=== PATIENT | male | born 1995 | race Caucasian/White ===

== ENCOUNTER 2018-07-06 11:04 | Emergency (ER) | payer OTHER ==
[2018-07-06 13:20] VITALS: BP 119/86
--- NOTE | 2018-07-06 13:22 | UC ---
Eye Complaint HPI - HPI Summary HPI Summary: Left eye redness and crustiness this morning. Wears contact lenses all day but not through the night. Denies eye pain or feeling like a foreign body is in the eye. - History of Current Complaint Chief Complaint: UCEye Stated Complaint: BILATERAL EYE CONCERN Time Seen by Provider: 07/06/18 13:22 Hx Obtained From: Patient Onset/Duration: Gradual Onset Severity Initially: Mild Severity Currently: Mild Pain Intensity: 0 Location of Injury: Other - No injury Aggravating Factor(s): Contact Lens Alleviating Factor(s): Nothing Associated Signs And Symptoms: Positive: Drainage (Purulent). Negative: Vision Impairment Right, Vision Impairment Left, Fever - Risk Factors Penetrating Injury Risk Factor: Negative Globe Rupture Risk Factors: Negative Acute Glaucoma Risk Factors: Negative Optic Artery Occlusion Risk Factors: Negative - Allergies/Home Medications Allergies/Adverse Reactions: Allergies Allergy/AdvReac Type Severity Reaction Status Date / Time No Known Allergies Allergy Verified 07/06/18 13:16 PMH/Surg Hx/FS Hx/Imm Hx Previously Healthy: Yes - Surgical History Surgical History: None - Family History Known Family History: Positive: None - Social History Occupation: Student Lives: Dormitory/Roommates Alcohol Use: Occasionally Substance Use Type: None Smoking Status (MU): Never Smoked Tobacco Review of Systems All Other Systems Reviewed And Are Negative: Yes Eyes: Positive: Drainage - Left eye redness, no pain, no feeling of foreign body in eye, Eye Redness Is Patient Immunocompromised?: No Physical Exam Appearance: Well-Appearing, No Pain Distress, Well-Nourished Vital Signs: Initial Vital Signs Temp 98.0 F 07/06/18 13:14 Pulse 53 07/06/18 13:14 Resp 15 07/06/18 13:14 BP 119/86 07/06/18 13:14 Pulse Ox 98 07/06/18 13:14 Vital Signs Reviewed: Yes Eyes: Positive: Other: - No drainage presently, conjunctiva and sclera injected , no pain, globe is intact. ENT: Positive: Hearing grossly normal, Pharynx normal, TMs normal Neck exam: Normal Neck: Positive: Supple, Nontender, No Lymphadenopathy Musculoskeletal: Positive: Strength Intact, ROM Intact Neurological: Positive: Alert, Muscle Tone Normal - CN II-XII intact. Skin: Positive: Other - Left eyelid may be a bit swollen to give the appearance of the eylid mildly drooping, but all of his Cranial Nerves (II-XII) are normal and symmetric. The eyelid is normal color Eye Complaint Course/Dx - Course Course Of Treatment: Pt comfortable here. Will treat as a conjunctivitis with a follow up at an ophthamologist in 2-3 days if no improvement and definite follow up if the eyelid drooping does not resolve. Pt is agreeable with this plan of action. - Differential Dx/Diagnosis Provider Diagnosis: Left conjunctivitis Discharge - Sign-Out/Discharge Documenting (check all that apply): Patient Departure All imaging exams completed and their final reports reviewed: No Studies - Discharge Plan Condition: Fair Disposition: HOME Prescriptions: Tobramycin 0.3% OPHTH.MAE* 1 drop LEFT EYE Q4H 7 Days #1 btl Patient Education Materials: Conjunctivitis (ED) Referrals: No Primary Care Phys,NOPCP [Primary Care Provider] - DAWIT ROSENBAUM [Z.BUSINESS, APPLICATION, OTHER] - Additional Instructions: Use the antibiotic drops every 4 hours in the left eye for one week. No contacts until cleared, do not rub eye, follow up with a local ophthamologist in 2-3 days if no improvement. - Billing Disposition and Condition Condition: FAIR Disposition: Home
== END 2018-07-06 13:52 | disposition home or self-care (01) ==
LOC: UCCORT 11:04
DX: H10.9 Unspecified conjunctivitis (principal)
CPT/HCPCS: 99202; G0463